=== PATIENT | male | born 1995 | race Caucasian/White ===

== ENCOUNTER 2016-11-07 15:55 | Emergency (ER) | payer BC ==
[~2016-11-07] VITALS: Wt 83.0 kg
[~2016-11-07 15:55] MED LIST: IBUP-1542 PO
[2016-11-07] MEDS ORDERED: AMO500 PO (16:08)
--- NOTE | 2016-11-07 16:22 | ERD ---
ER Documentation Chief Complaint Date/Time DATE: 11/07/16 TIME: 16:10 Chief Complaint LEFT EAR PAIN SINCE THIS MORNING AND RUNNY NOSE. NO FEVERS HPI The patient is a 29-year-old male with no significant past medical or surgical history comes with left pain since approximately 3 AM this morning. He states that he had a cold last week with symptoms of cough and congestion, however this resolved approximately 2 days ago. He denies any other symptoms or concerns at this time including, but not limited to fever, chills, nausea, vomiting, diarrhea, headache, neck soreness or stiffness, sore throat, chest pain, difficulty breathing. He has had one previous ear infection after having a cold. Denies any eustachian tubes or previous history of ruptured tympanic membranes. He denies smoking. He denies any decreased hearing. He denies dizziness. ROS All systems reviewed and are negative except as per history of present illness. Medications Home Meds Active Scripts Amoxicillin* (Amoxicillin*) 500 Mg Cap, 1000 MG PO Q8 for 7 Days, CAP Prov:PATRICIA PRICE NP 11/07/16 Ibuprofen* (Motrin*) 600 Mg Tab, 600 MG PO Q6, #20 TAB Prov:MIRIAM WHITLOCK MD 08/24/16 Allergies Allergies: Coded Allergies: No Known Allergy (Unverified , 06/13/12) PMhx/Soc History of Surgery: No Anesthesia Reaction: No Hx Neurological Disorder: No Hx Respiratory Disorders: No Hx Cardiac Disorders: No Hx Psychiatric Problems: No Hx Miscellaneous Medical Probl: No Hx Alcohol Use: No Hx Substance Use: No Hx Tobacco Use: No Physical Exam Vitals Vital Signs Date Time Temp Pulse Resp B/P Pulse Ox O2 Delivery O2 Flow Rate FiO2 11/07/16 15:58 98.3 69 20 128/72 98 Physical Exam INITIAL VITAL SIGNS: Reviewed by me, afebrile, no tachycardia, no tachypnea, oximetry 98% on room air GENERAL: Alert. Well developed and well nourished. No respiratory distress. Well -appearing. No acute distress. HEAD: Head is normocephalic. Atraumatic. No sinus tenderness to palpation. EYES: EOMI. PERRL. No scleral icterus. No conjunctival injection. No clear or purulent drainage. ENT: External ears, nose, and mouth normal. No pain with manipulation of the outer ears. Ear canals clear. Right tympanic membrane pearly/lake, no erythema/ injection/bulging/effusion. Left tympanic membrane with erythema and bulging. No effusion noted. Nasal passages patent and without rhinorrhea. Oropharynx clear. Tonsils +2 and without erythema or exudates. Uvula midline. Airway patent. Moist mucous membranes. NECK: Supple. Full range of motion. Trachea midline. No meningismus. No lymphadenopathy. RESPIRATORY: No tachypnea. Clear to auscultation bilaterally. No wheezing, rales , or rhonchi. CV: Regular rate and rhythm. No murmurs, rubs, or gallops ABDOMEN: Soft, non-distended, non-tender. Bowel sounds normal in all quadrants. BACK: No CVA tenderness. Full ROM. EXTREMITIES: No obvious deformity. No clubbing or cyanosis. No edema. SKIN: Warm and dry. No diaphoresis. No obvious rashes or lesions. NEUROLOGIC: Alert and oriented x 3. Appropriate. Face is symmetric. Speech is normal. Moves all extremities equally. Procedures/MDM Nursing Notes Reviewed Previous Medical Records requested via [facility]. EMERGENCY DEPARTMENT COURSE / MEDICAL DECISION MAKING: The patient comes to the ED secondary to left ear pain since approximately 3 AM today. Differential diagnosis upon initial evaluation includes but is not limited to: Otitis external, otitis media, effusion, TMJ, foreign body, and others. At this time, the patient's history and physical exam are most consistent with otitis media of the left ear. He is well-appearing and in no acute distress. He is afebrile, oximetry 98% on room air, no tachycardia, no tachypnea, with a benign physical exam. He feels well per his baseline with the exception of left ear pain. He denies dizziness, loss of balance, or nausea. He denies any changes in his hearing. As such, I feel that he is an appropriate candidate for outpatient management and follow-up at this time. He stated that his ear pain was moderate and manageable. He denied the need for any pain medication. Final impression: Left otitis media Based on patient's history of present illness and physical examination the decision was made to discharge. There is no evidence of life threatening injuries or illnesses at this time. On re-examination, patient resting in no distress, stable vital signs, reports feeling safe for discharge with outpatient follow up with PMD in 2-3 days for a recheck. Patient given return precautions. He verbalized understanding and agreed to return precautions. He will return here immediately for new or worsening symptoms. Prescription Amoxicillin Departure Diagnosis: Primary Impression: Otitis media of left ear Otitis media type: unspecified Chronicity: unspecified Qualified Code: H66.92 - Left otitis media, unspecified chronicity, unspecified otitis media type Condition: Stable Patient Instructions: Otitis Media, Abx Tx (Adult) Additional Instructions: Call your primary care doctor TOMORROW for an appointment during the next 2-3 days.See the doctor sooner or return here if your condition worsens before your appointment time. PATRICIA PRICE NP Nov 07, 2016 16:20
== END 2016-11-07 16:10 | disposition home or self-care (01) ==
LOC: E/R 15:55
DX: H66.92 Otitis media, unspecified, left ear (principal)
CPT/HCPCS: 99283

== ENCOUNTER → 2016-11-24 | Emergency (ER) | payer BC ==
[~2016-11-24] VITALS: Wt 82.0 kg
[~2016-11-24] MED LIST changes: +AMO500 PO; +KETOROLAC 15 MG INJ IM STA
--- NOTE | 2016-11-24 18:13 | RADRPT ---
PROCEDURE: XR Knee. CLINICAL INDICATION: Pain TECHNIQUE: AP, lateral and oblique view of the right knee were obtained. The images reviewed on a PACS workstation. COMPARISON: None. FINDINGS: Three views of the right knee demonstrate no displaced fracture. No gross malalignment is seen. Th ere is no significant degenerate change. No patellofemoral disease is identified. No knee joint effu hayder is seen.. The bones normally mineralized. The soft tissues are unremarkable. IMPRESSION: No acute fracture dislocation RPTAT: HH .Woo Patel MD, MD Date Time Electronically viewed and signed by .Woo Patel MD, on 11/24/2016 18:13 .W/
--- NOTE | 2016-11-24 18:59 | ERD ---
ER Documentation Chief Complaint Date/Time DATE: 11/24/16 TIME: 18:55 Chief Complaint RIGHT KNEE PAIN FROM FALL YESTERDAY. NO DEFORMITY NOTED. HPI Patient is a 21-year-old male who presents to the ED with right knee pain after sustaining an injury yesterday basketball. He states that he fell on his knee and now has pain in the anterior and posterior aspect of his knee. He denies radiation of pain. Denies pain in his hip or ankle or feet. He states he is able to ambulate with mild difficulty. He denies swelling, fever, chills. Denies hitting his head, passing out or losing consciousness. Is not taking any medication for his symptoms. Denies numbness or tingling. No other complaints. ROS All systems reviewed and are negative except as per history of present illness. Medications Home Meds Active Scripts Ibuprofen* (Motrin*) 600 Mg Tab, 600 MG PO Q6, #30 TAB Prov:MAGDALENO MARINELLI PA-C 11/24/16 Amoxicillin* (Amoxicillin*) 500 Mg Cap, 1000 MG PO Q8 for 7 Days, CAP Prov:PATRICIA PRICE, PROCUREMENT ENGINEER 11/07/16 Ibuprofen* (Motrin*) 600 Mg Tab, 600 MG PO Q6, #20 TAB Prov:MIRIAM WHITLOCK MD 08/24/16 Allergies Allergies: Coded Allergies: No Known Allergy (Unverified , 11/24/16) PMhx/Soc Medical and Surgical Hx: pt denies Medical Hx, pt denies Surgical Hx History of Surgery: No Anesthesia Reaction: No Hx Neurological Disorder: No Hx Respiratory Disorders: No Hx Cardiac Disorders: No Hx Psychiatric Problems: No Hx Miscellaneous Medical Probl: No Hx Alcohol Use: No Hx Substance Use: No Hx Tobacco Use: No Smoking Status: Never smoker FmHx Family History: No coronary disease, No diabetes, No other Physical Exam Vitals Vital Signs Date Time Temp Pulse Resp B/P Pulse Ox O2 Delivery O2 Flow Rate FiO2 11/24/16 15:50 98.5 73 20 131/82 99 Physical Exam GENERAL: Well-developed, well-nourished male. Appears in no acute distress. HEAD: Normocephalic, atraumatic. EYES: Pupils are equally reactive bilaterally. EOMs grossly intact. No conjunctival erythema. ENT: Moist mucous membranes. No uvula deviation. No kissing tonsils. No exudates. NECK: Supple. No lymphadenopathy or thyromegaly. No meningismus. negative kernig. negative brudinski. LUNG: Clear to auscultation bilaterally. No rhonchi, wheezing, rales or coarse breath sounds. HEART: Regular rate and rhythm. No murmurs, rubs or gallops. Extremities: Equal pulses bilaterally. No peripheral clubbing, cyanosis or edema. No unilateral leg swelling. no fluid. no erythema, swelling to right knee. No foreign bodies or step-offs. No pain in his ankle or hip. No lacerations or open wounds. Pulses intact bilaterally. No foot drop. NEUROLOGIC: Alert and oriented. Moving all four extremities. 5/5 strength in all extremities. Normal speech. non Steady gait. SKIN: Normal color. Warm and dry. No rashes or lesions. Capillary refill < 2 seconds Results 24 hrs Current Medications Medications (Trade) Dose Ordered Sig/Radha Route PRN Reason Start Time Stop Time Status Last Admin Dose Admin Ketorolac Tromethamine (Toradol) 15 mg ONCE STAT IM 11/24/16 17:38 11/24/16 17:39 DC 11/24/16 17:56 Procedures/MDM ER COURSE: I kept the patient and/or family informed of laboratory and diagnostic imaging results throughout the emergency room course. IMAGING STUDIES [place] [address] Radiology Main Line: [phone] DIAGNOSTIC IMAGING REPORT Patient: CHIDI SANTIZO : 1995 Age: 21 Sex: M MR #: [id number] DOS: 11/24/16 1737 Ordering MD: MAGDALENO MARINELLI PA-C Location: [facility] Room/Bed: PROCEDURE: XR Knee. CLINICAL INDICATION: Pain TECHNIQUE: AP, lateral and oblique view of the right knee were obtained. The images reviewed on a PACS workstation. COMPARISON: None. FINDINGS: Three views of the right knee demonstrate no displaced fracture. No gross malalignment is seen. There is no significant degenerate change. No patellofemoral disease is identified. No knee joint effusion is seen.. The bones normally mineralized. The soft tissues are unremarkable. IMPRESSION: No acute fracture dislocation RPTAT: HH .Woo Patel MD, MD Date Time Electronically viewed and signed by .Woo Patel MD, MD on 11/24/2016 18:13 .W/ CC: MAGDALENO MARINELLI PA-C MEDICATIONS Toradol 15 mg. Tolerated well with no adverse reaction. PROCEDURE Ngozi wrap. Crutches. [Ngozi wrap Assessment: Neurovascularly intact post ngozi wrap placement with good fit.] Patient's extremity symptoms have stabilized while they have been evaluated in the department and are appropriate for outpatient follow up. MEDICAL DECISION MAKING: This is a 21-year-old male who presents with right knee pain after sustaining an injury yesterday in basketball. Vital signs were reviewed. Patient is afebrile. Patient is not hypoxic. Patient is not toxic or ill-appearing. Patient has right knee pain of unknown etiology. Low suspicion for dislocation , fracture, septic joint, compartment syndrome, osteomyelitis, cellulitis, avascular necrosis, neurological injury, vascular injury, tendon laceration. I expect the patient I cannot rule out tendon or ligament injury or meniscus. I have low suspicion for septic joint, cellulitis. DISCHARGE: At this time, patient is stable for discharge and outpatient management with no new complaints during the ER course. Patient was sent home with Ngozi wrap, crutches, ibuprofen and a copy of x-rays. List of orthopedics in the area were given to patient. Patient to follow-up with orthopedics in 1 week. May need further imaging studies such as MRI. Patient will be discharged home with instructions to recheck for new or worsening symptoms such as fever, nausea, weakness, LOC and to follow up with primary care in the next 1-2 days. Patient was advised to return to the ER for any new or worsening symptoms. Plan was discussed and patient and/or family understands and agrees. Home instructions were given. Departure Diagnosis: Primary Impression: Knee pain Laterality: right Chronicity: acute Qualified Code: M25.561 - Acute pain of right knee Condition: Stable Patient Instructions: Knee Pain, Uncertain Cause Referrals: DOCTOR,NOT ON STAFF (PCP) [facility] 7 a.m.- 11 p.m. Every Day of the Week NO APPOINTMENT OR AUTHORIZATION NEEDED [facility] [place] Hours: Mon-Fri 9:00 AM - 5:00 PM Additional Instructions: Call your primary care doctor TOMORROW for an appointment during the next 1-2 days.See the doctor sooner or return here if your condition worsens before your appointment time. MAGDALENO MARINELLI PA-C Nov 24, 2016 18:59
[2016-11-24 19:18] VITALS: BP 109/63; PULSE 63; RESP 18; TEMP 98.6
== END | disposition home or self-care (01) ==
LOC: E/R 15:46
DX: S89.91XA Unspecified injury of right lower leg, initial encounter (principal); W18.39XA Other fall on same level, initial encounter; Y92.9 Unspecified place or not applicable
CPT/HCPCS: 73562; 96372; J1885; Z7502

== ENCOUNTER 2018-12-03 13:30 | Emergency (ER) | payer BC ==
[~2018-12-03] VITALS: Wt 82.5 kg
[~2018-12-03 13:30] MED LIST changes: -AMO500 PO; +AMOX500C2 PO; -KETOROLAC 15 MG INJ IM STA
[2018-12-03 13:33] VITALS: BP 149/70; PULSE 77; RESP 16
[2018-12-03] MEDS ORDERED: IBUP800T48 PO (15:54)
--- NOTE | 2018-12-06 09:24 | ERD ---
ER Documentation Chief Complaint Chief Complaint LEFT RIB PAIN ADTER PLAYING BASKETBALL, NO INJURY REPORTED HPI 23-year-old male presenting with left rib pain. Patient was elbowed in the left ribs and has had pain. He denies any chest pain or shortness of breath. Has not taken medications for symptoms. Denies medical problems. NKDA. Surgical history denies. Social history denies ROS All systems reviewed and are negative except as per history of present illness. Medications Home Meds Active Scripts Ibuprofen* (Motrin*) 800 Mg Tab, 800 MG PO Q6, #30 TAB Prov:YISSEL FULTON PA-C 12/03/18 Ibuprofen* (Motrin*) 600 Mg Tab, 600 MG PO Q6, #30 TAB Prov:MAGDALENO MARINELLI PA-C 11/24/16 Amoxicillin* (Amoxicillin*) 500 Mg Cap, 1000 MG PO Q8 for 7 Days, CAP Prov:PATRICIA RPICE, DIRECTOR OF DESIGN 11/07/16 Ibuprofen* (Motrin*) 600 Mg Tab, 600 MG PO Q6, #20 TAB Prov:MIRIAM WHITLOCK MD 08/24/16 Allergies Allergies: Coded Allergies: No Known Allergy (Unverified , 11/24/16) PMhx/Soc History of Surgery: No Anesthesia Reaction: No Hx Neurological Disorder: No Hx Respiratory Disorders: No Hx Cardiac Disorders: No Hx Psychiatric Problems: No Hx Miscellaneous Medical Probl: No Hx Alcohol Use: Yes (Social) Hx Substance Use: No Hx Tobacco Use: No FmHx Family History: No diabetes, No coronary disease, No other Physical Exam Vitals Vital Signs Date Temp Pulse Resp B/P (MAP) Pulse Ox O2 O2 Flow FiO2 Time Delivery Rate 12/03/18 97.8 77 16 149/70 97 13:33 (96) Physical Exam GENERAL: The patient is well-appearing, well-nourished, in no acute distress CHEST: Clear to auscultation bilaterally. There are no rales, wheezes or rhonchi. HEART: Regular rate and rhythm. No murmurs, clicks, rubs or gallops. ABDOMEN:Soft, nontender and nondistended. Good bowel sounds. No rebound or guarding. No gross peritonitis. No gross organomegaly or masses. BACK: No midline or flank tenderness. Procedures/MDM DIAGNOSTIC IMAGING REPORT Patient: CHIDI SANTIZO : 1995 Age: 23 Sex: M MR #: [id number] DOS: 12/03/18 1451 Ordering MD: SALVATORE FULTON PA-C Location: [facility] Room/Bed: PROCEDURE: XR Left rib series. CLINICAL INDICATION: left rib pain TECHNIQUE: 6 views of the left rib cage and additional AP view of the chest are available for review COMPARISON: None available FINDINGS: The osseous structures, articular spaces, and surrounding soft tissues of the left rib cage are intact. No acute fracture or dislocation is seen. No radiopaque foreign body is identified. Low lung volumes. No evidence of pneumothorax, pleural effusion or focal air space disease. Cardiomediastinal silhouette within normal limits. IMPRESSION: 1. Unremarkable left rib cage x-ray series. 2. No evidence of acute cardiopulmonary disease. MDM: 23-year-old male complaining of rib pain. I have low suspicion for acute fracture dislocation. It was a cardiac or pulmonary emergency. Patient is discharged stricter precautions and supportive medications. Patient is told if symptoms change or worsen to return immediately to the ER. All questions answered discharge Departure Diagnosis: Primary Impression: Rib pain Condition: Stable Patient Instructions: Rib Contusion Referrals: [facility] YOU HAVE RECEIVED A MEDICAL SCREENING EXAM AND THE RESULTS INDICATE THAT YOU DO NOT HAVE A CONDITION THAT REQUIRES URGENT TREATMENT IN THE EMERGENCY DEPARTMENT. FURTHER EVALUATION AND TREATMENT OF YOUR CONDITION CAN WAIT UNTIL YOU ARE SEEN IN YOUR DOCTORS OFFICE WITHIN THE NEXT 1-2 DAYS. IT IS YOUR RESPONSIBILITY TO MAKE AN APPOINTMENT FOR FOLOW-UP CARE. IF YOU HAVE A PRIMARY DOCTOR --you should call your primary doctor and schedule an appointment IF YOU DO NOT HAVE A PRIMARY DOCTOR YOU CAN CALL OUR PHYSICIAN REFERRAL HOTLINE AT IF YOU CAN NOT AFFORD TO SEE A PHYSICIAN YOU CAN CHOSE FROM THE FOLLOWING [facility] [address] [facility] [address] [facility] [facility] [address] [facility] [address] [facility] [address] [facility]. [facility] [address] Additional Instructions: FOLLOW UP WITH YOUR PRIMARY CARE PHYSICIAN TOMORROW.Return to this facility if you are not improving as expected. YISSEL FULTON PA-C Dec 06, 2018 09:24
== END 2018-12-03 19:34 | disposition home or self-care (01) ==
LOC: FTE 13:30
DX: R07.81 Pleurodynia (principal)
CPT/HCPCS: 71100; Z7502